=== PATIENT | male | born 1985 | race Caucasian/White ===

== ENCOUNTER 2023-10-08 13:50 | Outpatient (CLI) | payer OTHER ==
--- NOTE | 2023-10-08 17:48 | MRI Report ---
PROCEDURE: Brain W/WO INDICATIONS: HEADACHE CONTRAST: clariscan 18.2ml TECHNIQUE: Noncontrast axial T1 spin echo, axial T2 fast spin echo, sagittal and axial FLAIR, coronal T2 fast sp in echo, axial gradient echo, axial diffusion and ADC through the brain. After the administration of contrast, axial and coronal T1 spin echo with fat saturation through the brain. COMPARISON: None. FINDINGS: Image quality: Excellent. CSF spaces: Basal cisterns are patent. No extra-axial fluid collections. Ventricles are normal in size and shape. Brain: No midline shift. No intracranial bleeds or masses. No abnormal intracranial enhancement. There is cerebral volume loss for age. There is periventricular white matter chronic small vessel is chemic change. The brainstem appears normal. Diffusion-weighted images demonstrate no acute ischemi c insults. No chronic ischemic insults. Normal intravascular flow voids are present. Skull and face: Calvarial marrow is normal in signal. Orbits appear normal. Sinuses: Sinuses and mastoids appear clear. IMPRESSION: No cause of headache can be seen on these images. No masses or abnormal enhancement can be seen. Negative for hydrocephalus or brain edema. Reviewed by: Naif Rondon MD on 10/08/2023 4:46 PM [facility] Approved by: Naif Rondon MD on 10/08/2023 4:46 PM [facility] Station ID: [id number]
== END 2023-10-08 13:51 | disposition home or self-care (01) ==
LOC: DI 13:50
DX: G44.89 Other headache syndrome (principal)
CPT/HCPCS: 70553; A9575

== ENCOUNTER 2023-11-14 12:44 | Outpatient (CLI) | payer OTHER ==
--- NOTE | 2023-11-15 16:34 | MRI Report ---
PROCEDURE: Finger(s) RT WO INDICATIONS: Concerning for first MCP UCL injury TECHNIQUE: Noncontrast oblique coronal T1 spin echo and T2 fast spin echo with fat saturation, axial and sagitta l T2 fast spin echo with fat saturation, through the thumb. COMPARISON: None. FINDINGS: Bones and cartilage: No fracture or osseous marrow edema. Cartilage throughout the imaged extremity appears intact, without focal deficit or reactive signal change in the underlying bone. Extensor tendons: Extensor tendons and sagittal bands are intact. Flexor tendons: Flexor tendons and volar plates are intact. No tendinosis, tenosynovitis or tendon te ar. Ligaments: There is mild intermediate signal of the ulnar collateral ligament at the first metacarpop halangeal joint, likely representing mild sprain. No full-thickness tear of the ulnar collateral liga ment at the first metacarpal phalangeal joint. The radial collateral ligament of the first metacarpop halangeal joint is intact. Soft tissues and miscellaneous: No ganglion cyst. IMPRESSION: Mild sprain of the ulnar collateral ligament at the first metacarpophalangeal joint. No full-thicknes s tear. Reviewed by: Lauren Amador MD on 11/15/2023 4:32 PM PDT Approved by: Lauren Amador MD on 11/15/2023 4:32 PM PDT Station ID: [id number]
== END 2023-11-14 12:45 | disposition home or self-care (01) ==
LOC: DI 12:44
DX: M18.11 Unilateral primary osteoarthritis of first carpometacarpal joint, right hand (principal); S63.641A Sprain of metacarpophalangeal joint of right thumb, initial encounter

== ENCOUNTER 2024-01-24 15:37 | Outpatient (CLI) | payer OTHER ==
--- NOTE | 2024-01-25 00:01 | Ultrasound Report ---
PROCEDURE: Soft Tissue Head or Neck INDICATIONS: ENLARGED LYMPH NODES TECHNIQUE: Real-time scanning was performed of the thyroid gland, with image documentation. COMPARISON: None FINDINGS: Grayscale and color Doppler images of the patient directed area of palpable turn the right submandibu lar region demonstrated a normal appearing level 1 cervical chain lymph node. No suspicious mass is n o abnormal fluid collection. IMPRESSION: A normal level 1 cervical chain lymph node correlates with palpable area of patient conc murphy in the right submandibular region. No suspicious mass or abnormal fluid collections. Reviewed by: David Hall MD on 01/24/2024 11:59 PM PDT Approved by: David Hall MD on 01/24/2024 11:59 PM PDT Station ID: [id number]
== END 2024-01-24 15:38 | disposition home or self-care (01) ==
LOC: DI 15:37
PROVIDERS: ATTEND Student in an Organized Health Care Education/Training Program
DX: R59.0 Localized enlarged lymph nodes (principal)